=== PATIENT | female | born 1950 | race Two or more races ===

== ENCOUNTER 2024-11-04 11:12 | Inpatient (IN) | payer OTHER ==
[~2024-11-04] VITALS: Ht 162.6 cm; Wt 99.8 kg
--- NOTE | 2024-11-04 11:21 | ED.PDOC ---
History of Present Illness HPI Comments 74 year old female presents to the ED via EMS with a chief complaint of dizziness onset yesterday. Per EMS, patient checked BP at home, was low, went to [place] this morning due to dizziness, generalized weakness, fatigue, nausea, chills, headache since yesterday. Patient had abnormal EKG, was sent to ED. Upon EMS arrival, BP was 113/68, HR was 130s-180s, A-fib, RVR. PMHx HTN, bipolar disorder. Denies vomiting, diarrhea, chest pain, shortness of breath. No other symptoms or modifying factors present at this time. Time Seen by MD: 11:14 Reviewed Notes: Medications, Allergies Allergies: Coded Allergies: Lovastatin (Verified Allergy, Unknown, 11/04/24) Information Source: Patient, Emergency Med Personnel Mode of Arrival: EMS Severity: Moderate Timing: Days Duration: Since onset Prehospital treatment: 12 Lead EKG Past Medical History PAST MEDICAL HISTORY: HTN Surgical History: Denies all surgeries ROLLER MAN History: No Pertinent ROLLER MAN History Family History Family History: Reviewed,noncontributory to illness, No family hx of Cancer, No family hx of DM, No family hx of Heart terese, No family hx of HTN, No family hx ofKidney terese, No family hx of Liver terese, No family hx of Lung terese, No family hx of Stroke Social History Smoker: Non-Smoker Alcohol: Denies ETOH Use Drugs: Denies Drug Use Lives In: Home Constitutional: reports: chills, fatigue, weakness; denies: diaphoresis, fever, malaise, sweats, others EENTM: reports: blurred vision; denies: double vision, ear bleeding, ear discharge, ear drainage, ear pain, ear ringing, eye pain, eye redness, hearing loss, mouth pain, mouth swelling, nasal discharge, nose bleeding, nose congestion, nose pain, photophobia, tearing, throat pain, throat swelling, voice changes, others Respiratory: denies: cough, hemoptysis, orthopnea, SOB at rest, shortness of breath, SOB with excertion, stridor, wheezing, others Cardiovascular: denies: chest pain, dizzy spells, diaphoresis, Dyspnea on exertion, edema, irregular heart beat, left arm pain, lightheadedness, palpitations, PND, syncope, others Gastrointestinal: reports: nausea; denies: abdomen distended, abdominal pain, blood streaked bowels, constipated, diarrhea, dysphagia, difficulty swallowing, hematemesis, melena, poor appetite, poor fluid intake, rectal bleeding, rectal pain, vomiting, others Genitourinary: denies: abnormal vagina bleeding, burning, dyspareunia, dysuria, flank pain, frequency, hematuria, incontinence, pain, , vagina discharge, urgency, others Neurological: reports: dizziness, headache, weakness; denies: fainting, left sided numbness, left sided weakness, numbness, paresthesia, pre-existing deficit, right sided numbness, right sided weakness, seizure, speech problems, tingling, tremors, others Musculoskeletal: denies: back pain, gout, joint pain, joint swelling, muscle pain, muscle stiffness, neck pain, others Integumetry: denies: bruises, change in color, change in hair/nails, dryness, laceration, lesions, lumps, rash, wounds, others Allergic/Immunocompromised: denies: Difficulty Healing, Frequent Infections, Hives, Itching, others Hematologic/Lymphatic: denies: anemia, blood clots, easy bleeding, easy bruising, swollen glands, others Endocrine: denies: excessive hunger, excessive sweating, excessive thirst, excessive urination, flushing, intolerance to cold, intolerance to heat, unexplained weight gain, unexplained weight loss, others Psychiatric: denies: anxiety, bipolar disorder, depression, hopeless, panic disorder, schizophrenia, sleepless, suicidal, others All Other Systems: Reviewed and Negative Physical Exam General Appearance: No Apparent Distress, Normal HEENT: Normal ENT Inspection, Pharynx Normal, TMs Normal Neck: Full Range of Motion, Non-Tender, Normal, Normal Inspection Respiratory: Chest Non-Tender, Lungs Clear, No Accessory Muscle Use, No Respiratory Distress, Normal Breath Sounds Cardiovascular: No Edema, No JVD, No Murmur, No Gallop, Normal Peripheral Pulses, Regular Rate/Rhythm Breast Exam: Deferred Gastrointestinal: No Organomegaly, Non Tender, No Pulsatile Mass, Normal Bowel Sounds, Soft Genitalia: Deferred Pelvic: Deferred Rectal: Deferred Extremities: No calf tenderness, Normal capillary refill, Normal inspection, Normal range of motion, Non-tender, No pedal edema Musculoskeletal : Apperance: Normal Neurologic: Alert, flotation tender II-XII nml as Tested, No Motor Deficits, Normal Affect, Normal Mood, No Sensory Deficits Cerebellar Function: Normal Reflexes: Normal Skin: Dry, Normal Color, Warm Lymphatic: No Adenopathy Was a procedure done? Was a procedure done?: No Differential Dx Considerations may include: ACS, CVA, electrolyte abnormalities, infectious etiology, pneumonia X-Ray, Labs, Meds, VS Vital Signs Date Time Temp Pulse Resp B/P (MAP) Pulse Ox O2 Delivery O2 Flow Rate FiO2 11/04/24 14:12 154 11/04/24 13:46 130 94/63 11/04/24 12:23 146 111/61 11/04/24 12:13 174 11/04/24 12:00 125 16 94/51 (65) 95 11/04/24 12:00 154 11/04/24 11:41 98.8 20 119/71 (87) 97 98.8 11/04/24 11:25 97.6 176 18 113/68 (83) 95 97.6 11/04/24 11:25 176 18 95 Room Air* 0 21 11/04/24 11:13 166 Lab Test 11/04/24 12:43 11/04/24 11:33 Range/Units Troponin I High Sensitivity 213 *H 84 *H </=34 ng/L White Blood Count 6.0 4.4-10.8 10^3/uL Red Blood Count 5.30 H 4.0-5.20 10^6/uL Hemoglobin 14.6 12.2-16.2 g/dL Hematocrit 43.8 36.0-46.0 % Mean Corpuscular Volume 82.6 80.0-100.0 fL Mean Corpuscular Hemoglobin 27.5 L 28.0-32.0 pg Mean Corpuscular Hemoglobin Concent 33.2 32.0-36.0 g/dL Red Cell Distribution Width 14.9 H 11.8-14.3 % Platelet Count 189 140-450 10^3/uL Mean Platelet Volume 8.5 6.9-10.8 fL Neutrophils (%) (Auto) 70.1 37.0-80.0 % Lymphocytes (%) (Auto) 19.1 10.0-50.0 % Monocytes (%) (Auto) 10.2 0.0-12.0 % Eosinophils (%) (Auto) 0.1 0.0-7.0 % Basophils (%) (Auto) 0.5 0.0-2.0 % Neutrophils # (Auto) 4.2 1.6-8.6 10 ^3/uL Lymphocytes # (Auto) 1.1 0.4-5.4 10 ^3/uL Monocytes # (Auto) 0.6 0-1.3 10 ^3/uL Eosinophils # (Auto) 0 0-0.8 10 ^3/uL Basophils # (Auto) 0 0-0.2 10 ^3/uL Nucleated Red Blood Cells 0.1 % Sodium Level 141 136-145 mmol/L Potassium Level 3.2 L 3.5-5.1 mmol/L Chloride Level 109 H 98-107 mmol/L Carbon Dioxide Level 24 20-31 mmol/L Anion Gap 8 5-15 Blood Urea Nitrogen 14 9-23 mg/dL Creatinine 1.01 0.550-1.02 mg/dL Glomerular Filtration Rate Calc 59 >90 mL/min BUN/Creatinine Ratio 13.9 10.0-20.0 Serum Glucose 119 H 74-106 mg/dL Lactic Acid Level 1.6 0.4-2.0 mmol/L Calcium Level 9.2 8.7-10.4 mg/dL B-Type Natriuretic Peptide 111.91 0-100 pg/mL Current Medications Medications (Trade) Dose Ordered Sig/Jeremy Route Start Time Stop Time Status Last Admin Metoprolol Tartrate (Lopressor) 5 mg ONCE ONCE IV 11/04/24 12:15 11/04/24 12:16 DC 11/04/24 12:23 Amiodarone HCl 100 ml @ 600 mls/hr ONCE ONCE IV 11/04/24 14:15 11/04/24 14:30 DC 11/04/24 14:[address] [address] Ph: [phone] DIAGNOSTIC IMAGING Diagnostic Imaging Report : [id number] Signed PATIENT: BRENNA ARMANDO ACCT: [id number] UNIT: [id number] : 1950 LOC: ER ROOM / BED: / AGE / SEX: 74 / F ADM STATUS: REG ER SERVICE 1122 ORDERING PHYSICIAN: SHERON NICHOLS MD PROCEDURE(s): CXRP - CHEST PORTABLE REASON: palpitations ORDER NUMBER(s): [id number], ACCESSION NUMBER(s): [id number] CHEST RADIOGRAPH Indication: palpitations Technique: Single frontal view of the chest was obtained COMPARISON: None FINDINGS: Lines and Tubes: None Lungs: Clear Pleura: No effusion. No pneumothorax. Cardiomediastinal contours: Unremarkable Bones: Unremarkable IMPRESSION: No acute disease. ATED BY: SHAI BHAKTA MD DICTATED DATE/TIME: 11/04/24 114 SIGNED BY: SHAI BHAKTA MD SIGNED DATE/TIME: 11/04/24 114 CC: Time of 1ST Reevaluation: 11:44 Reevaluation 1ST: Unchanged Patient Education/Counseling: Diagnosis, Treatment, Prognosis Family Education/Counseling: No Family Present Additional Information The following tests were ordered, and results were reviewed by me: BMP, CBC, TROP -x3, BNP, XY CHEST, LA W/ REFLEX, EKG -x3 Additional Information was gathered from interviewing the following independent historians: EMS I reviewed and agreed with the following test results read by other providers: XY CHEST I discussed treatment and results with medical personnel and: Patient Comprehensive systems review obtained and negative except for what is stated in the HPI. Departure 1 Departure Time of Disposition: 14:56 ([place] Authorization [id number] for admission to [facility].Patient is afib with rvr. Tried metoprololl without much affect. Started patient on amio. We will admit patient for further workup and expert consultation) Impression: Primary Impression: Atrial fibrillation with RVR Additional Impressions: Dizziness Weakness Elevated troponin Disposition: ADMITTED INPATIENT Admit to: [facility] Condition: Guarded Critical Care Note Critical Care Time?: Yes Critical care comment: AFib with RVR Authorized and Performed by: Sheron Nichols MD Total critical care time: Approximately 39 minutes Due to a high probability of clinically significant, life threatening deterioration, the patient required my highest level of preparedness to intervene emergently and I personally spent this critical care time directly and personally managing the patient. This critical care time included obtaining a history; examining the patient; pulse oximetry; ordering and review of studies; arranging urgent treatment with development of a management plan; evaluation of patient's response to treatment; frequent reassessment; and, discussions with other providers. This critical care time was performed to assess and manage the high probability of imminent, life-threatening deterioration that could result in multi-organ failure. It was exclusive of separately billable procedures and treating other patients and teaching time. Please see my other sections and the rest of the note for further information on patient assessment and treatment. Stability Stability form required: No Heart Score Heart Score: Heart Score Response (Comments) Value History Moderate Suspicious 1 EKG Repolarization Disturb 1 Age >65 2 Risk Factors >3 or Hx ASHD 2 Troponin >3 x's Normal limit 2 Total 8 I personally scribed for SHERON NICHOLS MD ([email or web address]) on 11/04/24 at 11:21. Electronically submitted by Stephanie Sebastian ([email or web address]). I personally scribed for SHERON NICHOLS MD ([email or web address]) on 11/04/24 at 11:57. Electronically submitted by Stephanie Sebastian ([email or web address]). I personally scribed for SHERON NICHOLS MD ([email or web address]) on 11/04/24 at 12:07. Electronically submitted by Stephanie Sebastian ([email or web address]). SHERON NICHOLS MD Nov 04, 2024 11:21
[2024-11-04 11:25] VITALS: PULSE 176; RESP 18; O2SAT 95
--- NOTE | 2024-11-04 11:44 | DVH ---
CHEST RADIOGRAPH Indication: palpitations Technique: Single frontal view of the chest was obtained COMPARISON: None FINDINGS: Lines and Tubes: None Lungs: Clear Pleura: No effusion. No pneumothorax. Cardiomediastinal contours: Unremarkable Bones: Unremarkable IMPRESSION: No acute disease.
[2024-11-04 11:48] LABS: Basophils # (auto) 0 10 ^3/uL (0-0.2); Basophils % (auto) 0.5 % (0.0-2.0); Eosinophils # (auto) 0 10 ^3/uL (0-0.8); Eosinophils % (auto) 0.1 % (0.0-7.0); Hematocrit 43.8 % (36.0-46.0); Hemoglobin 14.6 g/dL (12.2-16.2); Lymphocytes # (auto) 1.1 10 ^3/uL (0.4-5.4); Lymphocytes % (auto) 19.1 % (10.0-50.0); Mean Corpuscular Hemoglobin 27.5 pg (28.0-32.0); Mean Corpuscular Hgb Conc. 33.2 g/dL (32.0-36.0); Mean Corpuscular Volume 82.6 fL (80.0-100.0); Monocytes # (auto) 0.6 10 ^3/uL (0-1.3); Monocytes % (auto) 10.2 % (0.0-12.0); Neutrophils # (auto) 4.2 10 ^3/uL (1.6-8.6); Neutrophils % (auto) 70.1 % (37.0-80.0); Nucleated Red Blood Cells % 0.1 %; Platelet Count (auto) 189 10^3/uL (140-450); Red Cell Distribution Width 14.9 % (11.8-14.3)
[2024-11-04 11:57] LABS: Sodium 141 mmol/L (136-145)
[2024-11-04 11:58] LABS: Anion Gap 8 (5-15); Carbon Dioxide 24 mmol/L (20-31)
[2024-11-04 11:59] LABS: Calcium 9.2 mg/dL (8.7-10.4)
[2024-11-04 12:04] LABS: BUN/Creatinine Ratio 13.9 (10.0-20.0); Blood Urea Nitrogen 14 mg/dL (9-23); Chloride 109 mmol/L (98-107); Glucose 119 mg/dL (74-106); Potassium 3.2 mmol/L (3.5-5.1)
[2024-11-04] MEDS: METOPROLOL TARTRATE 1MG/1ML-5ML VIAL IV ONE (12:23)
[2024-11-04] MEDS: AMIODARONE BOLUS KIT 100 ML IV ONE (14:36)
[2024-11-04] MEDS: AMIODARONE 360mg/200mL PREMIX 200 ML IV ONE (14:43)
--- NOTE | 2024-11-04 18:56 | ECG ---
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
--- NOTE | 2024-11-04 18:57 | ECG ---
[facility] Test Date: 2024-11-04 Test Time: 14:12:37 Pat Name: BRENNA ARMANDO Department: ED Room: 0221T Gender: F Application Development Team Lead: sole : 1950 Requested By: SHERON DE LOS SANTOS Order Number: [id number] Reading MD: Michael Carmona Measurements Intervals [place] Rate: 154 P: 0 VA: 0 QRS: 9 QRSD: 78 T: 109 QT: 316 QTc: 506 Interpretive Statements Atrial fibrillation with rapid V-rate LVH with secondary repolarization abnormality Electronically Signed On 11-05-2024 18:48:32 PDT by Michael Carmona Please click the below link to view image of tracing.
[2024-11-04] MEDS ORDERED: ONDANSETRON HCL 4 MG/2 ML VIAL IV PRN (19:30)
[2024-11-04] MEDS ORDERED: DEXTROSE (50%) 50ML SYRG IV PRN (19:30)
[2024-11-04] MEDS ORDERED: ACETAMINOPHEN 325 MG TAB PO PRN (19:30)
[2024-11-04] MEDS ORDERED: NITROGLYCERIN 0.4 MG SL TAB SL PRN (19:30)
[2024-11-04] MEDS ORDERED: MORPHINE SULFATE INJ 2 MG/ml SYRG IV PRN (19:30)
[2024-11-04 20:00] VITALS: PULSE 118; RESP 16; O2SAT 98
[2024-11-04] MEDS: AMIODARONE 360mg/200mL PREMIX 200 ML IV SCH (20:17)
[2024-11-04] MEDS: POTASSIUM CHL 20 Meq TABLET PO ONE (20:23)
[2024-11-04] MEDS: DABIGATRAN 75 MG CAP PO SCH (22:00)
[2024-11-04] MEDS: InsuLIN REG 1unit/0.01ml Soln (100units/ml) SC SCH (22:00)
[2024-11-04] MEDS: ACCU-CHEK COMFORT CURVE STRIP VI SCH (22:25)
[2024-11-04 22:30] VITALS: BP 143/71; PULSE 79; RESP 18; TEMP 98.7; O2SAT 97
[2024-11-04 22:32] VITALS: BP 121/69; PULSE 76; RESP 16; TEMP 98.3; O2SAT 96
--- NOTE | 2024-11-04 22:51 | DVHHP2 ---
History of Present Illness Reason for Visit: Generalized weakness History of Present Illness 74-year-old female presents for evaluation of generalized weakness. Patient endorses a two day history of generalized weakness with associated dizziness. Today the patient developed substernal chest pressure and left arm pain so she p resented for further evaluation. On arrival to the emergency department patient was noted to be in atrial fibrillation with rapid ventricular response with a heart rate in the 150s. Past Medical History Diabetes mellitus, hypertension Past Surgical History Denies Family History Noncontributory Smoke: No ALCOHOL: none Drugs: None Lives: with Family Review of Systems Review of Systems Review of systems are currently negative otherwise addressed in HPI. Allergies: Coded Allergies: Lovastatin (Verified Allergy, Unknown, 11/04/24) Medications Current Medications Medications Dose Ordered Sig/Jeremy Route Start Time Stop Time Status Last Admin Dose Admin Dabigatran 150 mg BID PO 11/04/24 22:00 Metoprolol Succinate 25 mg DAILY PO 11/05/24 10:00 Losartan Potassium 25 mg DAILY PO 11/05/24 10:00 Diagnostic Test (Pha) 1 strip ACHS 11/04/24 22:00 11/04/24 22:25 1 STRIP Insulin Human Regular ACHS SC 11/04/24 22:00 Dextrose 50 ml UD PRN IV 11/04/24 19:30 Ondansetron HCl 4 mg Q4HP PRN IV 11/04/24 19:30 Acetaminophen 650 mg Q6HP PRN PO 11/04/24 19:30 Nitroglycerin 0.4 mg Q5MINP PRN SL 11/04/24 19:30 Morphine Sulfate 2 mg Q30M PRN IV 11/04/24 19:30 Exam Vital Signs Vital Signs Date Time Temp Pulse Resp B/P (MAP) Pulse Ox O2 Delivery O2 Flow Rate FiO2 11/04/24 21:30 81 13 147/83 (104) 93 11/04/24 20:00 Room Air* 0 21 11/04/24 20:00 99.1 99.1 Exam Gen: 74-year-old female in mild distress Skin: Warm, dry, normal color and texture, no rash. HEENT: Normocephalic atraumatic, mucous membranes moist and pink. Neck: Cervical and supraclavicular nodes normal without enlargement, trachea is midline, thyroid gland is normal without masses. Pulmonary: Clear to auscultation and percussion bilaterally. Cardiac: Regular rate and rhythm. No murmur Abdomen: Soft, nontender, nondistended, bowel sounds present all 4 quadrants, no guarding, no rigidity, no organomegaly. Extremities: No cyanosis, clubbing, no edema Neuro: Cranial nerves II through XII grossly intact, normal affect and speech, no focal motor deficits. Labs/Xrays ORDERING PHYSICIAN: SHERON DE LOS SANTOS MD PROCEDURE(s): CXRP - CHEST PORTABLE REASON: palpitations ORDER NUMBER(s): [id number], ACCESSION NUMBER(s): [id number] CHEST RADIOGRAPH Indication: palpitations Technique: Single frontal view of the chest was obtained COMPARISON: None FINDINGS: Lines and Tubes: None Lungs: Clear Pleura: No effusion. No pneumothorax. Cardiomediastinal contours: Unremarkable Bones: Unremarkable IMPRESSION: No acute disease. Labs Test 11/04/24 15:02 11/04/24 11:33 Range/Units Troponin I High Sensitivity 423 *H </=34 ng/L White Blood Count 6.0 4.4-10.8 10^3/uL Red Blood Count 5.30 H 4.0-5.20 10^6/uL Hemoglobin 14.6 12.2-16.2 g/dL Hematocrit 43.8 36.0-46.0 % Mean Corpuscular Volume 82.6 80.0-100.0 fL Mean Corpuscular Hemoglobin 27.5 L 28.0-32.0 pg Mean Corpuscular Hemoglobin Concent 33.2 32.0-36.0 g/dL Red Cell Distribution Width 14.9 H 11.8-14.3 % Platelet Count 189 140-450 10^3/uL Mean Platelet Volume 8.5 6.9-10.8 fL Neutrophils (%) (Auto) 70.1 37.0-80.0 % Lymphocytes (%) (Auto) 19.1 10.0-50.0 % Monocytes (%) (Auto) 10.2 0.0-12.0 % Eosinophils (%) (Auto) 0.1 0.0-7.0 % Basophils (%) (Auto) 0.5 0.0-2.0 % Neutrophils # (Auto) 4.2 1.6-8.6 10 ^3/uL Lymphocytes # (Auto) 1.1 0.4-5.4 10 ^3/uL Monocytes # (Auto) 0.6 0-1.3 10 ^3/uL Eosinophils # (Auto) 0 0-0.8 10 ^3/uL Basophils # (Auto) 0 0-0.2 10 ^3/uL Nucleated Red Blood Cells 0.1 % Sodium Level 141 136-145 mmol/L Potassium Level 3.2 L 3.5-5.1 mmol/L Chloride Level 109 H 98-107 mmol/L Carbon Dioxide Level 24 20-31 mmol/L Anion Gap 8 5-15 Blood Urea Nitrogen 14 9-23 mg/dL Creatinine 1.01 0.550-1.02 mg/dL Glomerular Filtration Rate Calc 59 >90 mL/min BUN/Creatinine Ratio 13.9 10.0-20.0 Serum Glucose 119 H 74-106 mg/dL Lactic Acid Level 1.6 0.4-2.0 mmol/L Calcium Level 9.2 8.7-10.4 mg/dL B-Type Natriuretic Peptide 111.91 0-100 pg/mL Thyroid Stimulating Hormone (TSH) 1.59 0.55-4.78 uIU/mL Assessment/Plan Assessment/Plan Assessment AFib with RVR Hypertension Electrolyte imbalance Diabetes mellitus Secondary coagulopathy Plan Admit the patient to [facility] to the hospitalist Continue amiodarone drip Echocardiogram pending Cardiology consultation Resume home medications Continue treatment per orders. Plan discussed with: Patient [facility] Procedure Category Date Status Time Dabigatran Capsule PHA 11/04/24 In Process (Pradaxa Capsule) 22:00 Metoprolol Xl PHA 11/05/24 In Process Succinate (Toprol Xl) 10:00 Losartan Tablet PHA 11/05/24 In Process (Cozaar Tablet) 10:00 * Cardiology Consult CONS 11/04/24 Transmitted 19:17 Consistent DIET 11/05/24 Transmitted Carb(Ccho)Diabetes Breakfast Glucose Blood PHA 11/04/24 In Process (Accu-Chek Comfort 22:00 Insulin R (Human) PHA 11/04/24 In Process (Insulin R) 22:00 Dextrose 50% Syringe PHA 11/04/24 In Process 19:30 Admit ADMIT 11/04/24 Transmitted 19:17 Ondansetron Hcl PHA 11/04/24 In Process (Zofran) 19:30 Complete Blood Count LAB 11/05/24 Verified 04:00 Echo 2d Mode Cardiac US 11/04/24 Logged DOP 19:17 Condition: Fair [place] 11/04/24 In Process 19:17 Acetaminophen Tablet PHA 11/04/24 In Process (Tylenol Tablet) 19:30 Bedrest With Bathroom [place] 11/04/24 In Process Privileg 19:17 Nitroglycerin PHA 11/04/24 In Process Sublingual (Ntrostat 19:30 Morphine Sulfate PHA 11/04/24 In Process Injection 19:30 Stat Ekg For Chest [place] 11/04/24 In Process Pain 19:17 Notify Md Of Changes [place] 11/04/24 In Process From Base 19:17 Ironworker Apprentice For [facility] 11/04/24 In Process 24 Hours 19:17 Emergency Dysrhythmia [place] 11/04/24 In Process Protocol 19:17 Rhythm Strips Once [place] 11/04/24 In Process Every Shift 19:17 Oxygen By Nasal RT 11/04/24 Transmitted Cannula 19:17 Basic Metabolic Panel LAB 11/05/24 Verified 04:00 Date of Service: Nov 04, 2024 Billing Provider: KIKE MCGREGOR Common Visit Codes: [id number] INP/OBS CARE (HIGH) KIKE MCGREGOR Nov 04, 2024 22:51
[2024-11-05] VITALS (9 sets, daily range): BP systolic 120–149; BP diastolic 67–85; PULSE 68–111; RESP 16–20; TEMP 98.1–98.6; O2SAT 96–98
[2024-11-05 01:54] LABS: LDL Cholesterol 72 mg/dL (< 100); Triglycerides 95 mg/dL (< 150)
[2024-11-05 01:56] LABS: Cholesterol 162 mg/dL (< 200); HDL Cholesterol 69 mg/dL (40-59)
[2024-11-05] MEDS ORDERED: ROSU5TAB24 PO (05:05)
[2024-11-05] MEDS ORDERED: METO25TA93 PO (05:05)
[2024-11-05] MEDS ORDERED: DABI150C5 PO (05:05)
[2024-11-05] MEDS ORDERED: VENL1TAB97 PO (05:05)
[2024-11-05 06:41] LABS: Potassium 3.9 mmol/L (3.5-5.1); Sodium 141 mmol/L (136-145)
[2024-11-05 06:42] LABS: Anion Gap 7 (5-15); Basophils # (auto) 0 10 ^3/uL (0-0.2); Basophils % (auto) 0.6 % (0.0-2.0); Calcium 9.2 mg/dL (8.7-10.4); Carbon Dioxide 26 mmol/L (20-31); Chloride 108 mmol/L (98-107); Eosinophils # (auto) 0.1 10 ^3/uL (0-0.8); Eosinophils % (auto) 1.1 % (0.0-7.0); Hematocrit 39.8 % (36.0-46.0); Hemoglobin 13.2 g/dL (12.2-16.2); Lymphocytes # (auto) 1.3 10 ^3/uL (0.4-5.4); Mean Corpuscular Hemoglobin 27.5 pg (28.0-32.0); Mean Corpuscular Hgb Conc. 33.1 g/dL (32.0-36.0); Mean Corpuscular Volume 83.1 fL (80.0-100.0); Monocytes # (auto) 0.6 10 ^3/uL (0-1.3); Monocytes % (auto) 12.5 % (0.0-12.0); Neutrophils % (auto) 59.8 % (37.0-80.0); Platelet Count (auto) 174 10^3/uL (140-450); Red Cell Distribution Width 15.2 % (11.8-14.3)
[2024-11-05 06:47] LABS: BUN/Creatinine Ratio 21.3 (10.0-20.0); Blood Urea Nitrogen 16 mg/dL (9-23)
[2024-11-05 06:48] LABS: Glucose 123 mg/dL (74-106)
[2024-11-05] MEDS: METOPROLOL SUCCINATE XL 50 MG TAB PO SCH (09:30)
[2024-11-05] MEDS: LOSARTAN POTASSIUM 25 MG TAB PO SCH (09:30)
--- NOTE | 2024-11-05 10:01 | ECG ---
[facility] Test Date: 2024-11-04 Test Time: 12:13:58 Pat Name: BRENNA ARMANDO Department: ER Room: 0221T B Gender: F Diver Tender: PAVITHRA : 1950 Requested By: SHERON DE LOS SANTOS Order Number: [id number] Reading MD: Michael Carmona Measurements Intervals [place] Rate: 174 P: 0 [place]: 0 QRS: 1 QRSD: 83 T: 241 QT: 267 QTc: 455 Interpretive Statements Atrial fibrillation with rapid V-rate LVH with secondary repolarization abnormality Electronically Signed On 11-05-2024 18:47:14 PDT by Michael Carmona Please click the below link to view image of tracing.
--- NOTE | 2024-11-05 11:47 | DVHINCON2 ---
Date Seen: Nov 05, 2024 Referring Physician RAFAEL Lujan Reason for Consultation Afib RVR History of Present Illness This is a 74-year-old female patient who presents to the emergency room with chief complaint of shortness of breath and dizziness one day prior to emergency room arrival. On the day of emergency room arrival, the patient states that she was at home and began experiencing severe shortness of breath. She states that she checked her blood pressure and noticed that her systolic was in the 80s. She decided to go to urgent care. While at urgent Care, it was noted that her heart rate was reaching the 160s. EMS was called and the patient was brought to the emergency room for further evaluation. Upon emergency room arrival, a twelve lead electrocardiogram revealed atrial fibrillation with rapid ventricular response. The patient was given an amiodarone bolus and subsequently started on an amiodarone drip by ER staff. Initial troponin level of 84ng/L with peak level at 423ng/L. Significant past medical history includes paroxysmal atrial fibrillation (on Pradaxa), hypertension, dyslipidemia, bipolar disorder, and morbid obesity. At the time of assessment, the patient is now in normal sinus rhythm, confirmed with twelve lead electrocardiogram. Past Medical History Past medical history reviewed. No other significant than mentioned above. Past Surgical History Denies all previous surgeries Family History: Patient reports no known family medical history. Family History Family history reviewed. Social History Denies the use of tobacco, alcohol or illicit drugs. Allergies: Coded Allergies: Lovastatin (Verified Allergy, Unknown, 11/04/24) Home Meds Reported Medications Venlafaxine Hydrochloride (Venlafaxine Hcl) 37.5 Mg Tab, 37.5 MG PO DAILY, TAB 11/05/24 Rosuvastatin Calcium (Rosuvastatin Calcium) 5 Mg Tab, 5 MG PO DAILY, TAB 11/05/24 Metoprolol Succinate (Metoprolol Succinate Er) 25 Mg Tab, 25 MG PO DAILY, TAB 11/05/24 Dabigatran Etexilate Mesylate (Pradaxa) 150 Mg Cap, 150 MG PO BID, CAP 11/05/24 Home Meds Home medications reviewed. Current Medications Current Medications Medications (Trade) Dose Ordered Sig/Jeremy Route PRN Reason Start Time Stop Time Status Last Admin Dabigatran (Pradaxa Capsule) 150 mg BID PO 11/04/24 22:00 11/05/24 11:24 Metoprolol Succinate (Toprol Xl) 25 mg DAILY PO 11/05/24 10:00 11/05/24 09:30 Losartan Potassium (Cozaar Tablet) 25 mg DAILY PO 11/05/24 10:00 11/05/24 09:30 Diagnostic Test (Pha) (Accu-Chek Comfort Curve T) 1 strip ACHS 11/04/24 22:00 11/05/24 06:12 Insulin Human Regular (InsuLIN R) ACHS SC 11/04/24 22:00 Dextrose 50 ml UD PRN IV Blood Sugar LESS THAN 60 11/04/24 19:30 Ondansetron HCl (Zofran) 4 mg Q4HP PRN IV NAUSEA / VOMITING 11/04/24 19:30 Acetaminophen (Tylenol Tablet) 650 mg Q6HP PRN PO PAIN SCALE 1-3 OR TEMP>100.4 11/04/24 19:30 Nitroglycerin (Ntrostat Sublingual) 0.4 mg Q5MINP PRN SL FOR CHEST PAIN 11/04/24 19:30 Morphine Sulfate 2 mg Q30M PRN IV FOR CHEST PAIN 11/04/24 19:30 Review of Systems Constitutional: No symptom reported Ears, Nose, & Throat: No symptom reported Eyes: No symptom reported Neurological: Dizziness Pulmonary/Respiratory: Shortness of breath Cardiovascular: No symptom reported Gastrointestinal: No symptom reported Genitourinary: No symptom reported Musculoskeletal: No symptom reported Skin: No symptom reported Psychiatric: No symptom reported Endocrine: No symptom reported Hematologic/Lymphatic: No symptom reported Vital Signs Vital Signs Date Time Temp Pulse Resp B/P (MAP) Pulse Ox O2 Delivery O2 Flow Rate FiO2 11/05/24 09:30 147/85 11/05/24 09:30 72 11/05/24 08:30 20 97 Room Air* 0 21 11/05/24 07:26 98.3 98.3 Physical Exam General Appearance: Cooperative. Morbidly obese Pulmonary/Respiratory: Clear, bilateral breaths sounds. Cardiovascular/Chest: Regular rate and rhythm. Peripheral Pulses: 2+ Radial (R). 2+ Radial (L). 2+ Pedal (R). 2+ Pedal (L) Abdominal Exam: Normal bowel sounds. Ankle Exam: Negative ankle edema Lower extremities: Negative lower extremity edema Neuro/Mental Status: A/OX4, coherent. Thoughts/Psych: Normal thought pattern. Appropriate mood and affect. Good judgment and insight. Appearance: No acute distress. Skin Exam: Normal inspection. Normal color. Warm and dry. Labs/Diagnostic Data Labs Test 11/05/24 05:52 11/05/24 05:32 11/04/24 15:02 11/04/24 11:33 Range/Units POC Glucose 135 H 70-106 mg/dl White Blood Count 5.0 4.4-10.8 10^3/uL Red Blood Count 4.80 4.0-5.20 10^6/uL Hemoglobin 13.2 12.2-16.2 g/dL Hematocrit 39.8 36.0-46.0 % Mean Corpuscular Volume 83.1 80.0-100.0 fL Mean Corpuscular Hemoglobin 27.5 L 28.0-32.0 pg Mean Corpuscular Hemoglobin Concent 33.1 32.0-36.0 g/dL Red Cell Distribution Width 15.2 H 11.8-14.3 % Platelet Count 174 140-450 10^3/uL Mean Platelet Volume 8.8 6.9-10.8 fL Neutrophils (%) (Auto) 59.8 37.0-80.0 % Lymphocytes (%) (Auto) 26.0 10.0-50.0 % Monocytes (%) (Auto) 12.5 H 0.0-12.0 % Eosinophils (%) (Auto) 1.1 0.0-7.0 % Basophils (%) (Auto) 0.6 0.0-2.0 % Neutrophils # (Auto) 3.0 1.6-8.6 10 ^3/uL Lymphocytes # (Auto) 1.3 0.4-5.4 10 ^3/uL Monocytes # (Auto) 0.6 0-1.3 10 ^3/uL Eosinophils # (Auto) 0.1 0-0.8 10 ^3/uL Basophils # (Auto) 0 0-0.2 10 ^3/uL Nucleated Red Blood Cells 0.0 % Sodium Level 141 136-145 mmol/L Potassium Level 3.9 3.5-5.1 mmol/L Chloride Level 108 H 98-107 mmol/L Carbon Dioxide Level 26 20-31 mmol/L Anion Gap 7 5-15 Blood Urea Nitrogen 16 9-23 mg/dL Creatinine 0.75 0.550-1.02 mg/dL Glomerular Filtration Rate Calc 85 >90 mL/min BUN/Creatinine Ratio 21.3 H 10.0-20.0 Serum Glucose 123 H 74-106 mg/dL Hemoglobin A1c 6.1 H <5.7 % A1C Calcium Level 9.2 8.7-10.4 mg/dL Magnesium Level 2.2 1.6-2.6 mg/dL Troponin I High Sensitivity 423 *H </=34 ng/L Lactic Acid Level 1.6 0.4-2.0 mmol/L B-Type Natriuretic Peptide 111.91 0-100 pg/mL Triglycerides Level 95 < 150 mg/dL Cholesterol Level 162 < 200 mg/dL LDL Cholesterol 72 < 100 mg/dL HDL Cholesterol 69 H 40-59 mg/dL Thyroid Stimulating Hormone (TSH) 1.59 0.55-4.78 uIU/mL Assessment Atrial fibrillation with a rapid ventricular response, now normal sinus rhythm NSTEMI type II secondary to above History of paroxysmal atrial fibrillation (on Pradaxa) Hypertension Dyslipidemia Hypokalemia, resolved Bipolar disorder Morbid obesity Plan/Recommendation We will continue with the following plan/recommendations (Dr. Carmona): * Transthoracic echocardiogram reveals EF 60% * PPR1NU0 VASc score: 3 points * Continue NOAC therapy with Pradaxa * Continue with beta-anayeli for rate control * Transition to oral amiodarone * Monitor and replete electrolytes as needed, keep potassium greater than four and magnesium greater than two * Close Cardiac surveillance The patient who initially presented in atrial fibrillation with rapid ventricular response has now converted into a normal sinus rhythm. We will recommend to continue with NOAC therapy, beta-anayeli for rate control as well as antiarrhythmic agent. There is no further inpatient cardiac workup indicated at this time. We will recommend for the patient to follow up with a commercial real estate paralegal in the outpatient setting within 1-2 weeks post discharge. Thank you for allowing us to care for this patient. Please call with any questions or concerns. Critical care time spent: 43 minutes This medical document was created using an electronic medical record system with voice recognition software and computerized dictation system. Although this document has been carefully reviewed, there might still be some phonetic and typographical errors. Occasional wrong-word or ``sound-alike substitutions may have occurred due to the inherent limitations of voice recognition software. These areas are purely typographical due to imperfections of the software programs and do not reflect any compromise in the patient's medical care. Please read the chart carefully and recognize, using context, where these substitutions have occurred. Plan discussed with: Patient NYHA Physical activity limitations: NA Date of Service: Nov 05, 2024 Billing Provider: GIRISH CHOUDHURY Cardiology Common Codes: 32261-RVYACEO INP/OBS CARE (High) Cardiology Consultation Codes: 04169-AMLLDGJSR CONSULT <45MIN GIRISH CHOUDHURY Nov 05, 2024 11:47
--- NOTE | 2024-11-05 12:00 | ECG ---
[facility] Test Date: 2024-11-05 Test Time: 11:57:26 Pat Name: BRENNA ARMANDO Department: Respiratoy Room: 0221T B Gender: F Tester Compressed Gases: RAJWINDER : 1950 Requested By: GIRISH CHOUDHURY Order Number: [id number] Reading MD: Michael Carmona Measurements Intervals [place] Rate: 71 P: 40 CA: 136 QRS: 4 QRSD: 91 T: -2 QT: 435 QTc: 473 Interpretive Statements Sinus rhythm Probable left atrial enlargement Left ventricular hypertrophy Borderline T abnormalities, inferior leads Electronically Signed On 11-05-2024 18:34:20 PDT by Michael Carmona Please click the below link to view image of tracing.
--- NOTE | 2024-11-05 12:21 | DVHSR ---
APPROVED REPORT EXAM: Two-dimensional and M-mode echocardiogram with Doppler and color Doppler. Blood Pressure: 147/85 mmHg INDICATION AFIB RISK FACTORS Height: 64, Weight: 216 DIMENSIONS LVDd4.0 (3.8-5.7cm)LA (2D)3.9 (1.9-4.0cm)Aortic Root3.8 (2.0-3.7cm) LVDs3.0 (2.5-4.0cm)LA (MM) (1.9-4.0cm)Aortic Cusp Exc1.5 (1.5-2.0cm) EF (%) 50.0 (55-70%)Rt. Atrium (1.9-4.0cm)Asc. Aorta cm Mitral Valve MitralMitral Stenosis E wave0.87m/sMV Mean GR.mmHg A wave0.84m/sMV Peak GR.35mmHg E/A ratio1.02D MVAcm2 DECEL [id number] 1/2 Utsq08mb IVRTmsDop MVA2.24cm2 Aortic Valve Aortic ValveAortic Stenosis V10.84m/Nilo Mean GR.4mmHg V21.41m/Nilo Peak GR.8mmHg LVOT Diameter2.4 (1.8-2.4cm)Doppler AVA2.69cm2 Pulmonic Valve V20.92m/s Tricuspid Valve TR Velocity2.45m/s [id number] Conclusion Sinus rhythm. Left atrial enlargement with aortic root enlargement. Valves are normal. Mild mitral annular calcification. Mild aortic sclerosis. Left ventricular function is preserved at 60% with normal RV function. Dopplers unremarkable. No pericardial effusion masses or vegetations.
--- NOTE | 2024-11-05 14:37 | DVHPN2 ---
Assessment/Plan Assessment/Plan Progress note 74 yo F with pafib on pradaxa, htn, hld, bipolar, obesity admitted for avib RVR on amio drip, however regular rate on exam physical exam aox3 clear breath sounds s1 s2 rrr abdomen soft nontender no LE edema ambulating to bathroom labs ekg imaging reviewed assessment and plan afib with RVR Type 2 WA pAfib on pradaxa HTN HLD bipolar obesity c/w amio drip switch to oral if able ekg to confirm NSR resume home meds diet cardiac dvt ppx on pradaxa unstable to dc Plan discussed with: Patient Date of Service: Nov 05, 2024 Billing Provider: MARK DURBIN MD Common Visit Codes: [id number] INP/OBS CARE(HIGH) MARK DURBIN MD Nov 05, 2024 14:37
[2024-11-05] MEDS: AMIODARONE HCL 200 MG TAB PO ONE (15:06)
[2024-11-05] MEDS: AMIODARONE HCL 200 MG TAB PO SCH (22:53)
[2024-11-06 01:00] VITALS: BP_SYST 139; BP_SYST 152; BP_DIAS 66; BP_DIAS 79; PULSE 113; PULSE 77; RESP 16; TEMP 98.2; TEMP 98.5; O2SAT 96; O2SAT 97
[2024-11-06 05:00] VITALS: BP 147/87; PULSE 72; RESP 14; TEMP 98.4; O2SAT 96
[2024-11-06 06:49] LABS: Basophils # (auto) 0 10 ^3/uL (0-0.2); Basophils % (auto) 0.2 % (0.0-2.0); Eosinophils # (auto) 0 10 ^3/uL (0-0.8); Eosinophils % (auto) 0.7 % (0.0-7.0); Hematocrit 39.5 % (36.0-46.0); Hemoglobin 13.1 g/dL (12.2-16.2); Lymphocytes # (auto) 1.3 10 ^3/uL (0.4-5.4); Lymphocytes % (auto) 25.8 % (10.0-50.0); Mean Corpuscular Hemoglobin 27.5 pg (28.0-32.0); Mean Corpuscular Hgb Conc. 33.3 g/dL (32.0-36.0); Mean Corpuscular Volume 82.6 fL (80.0-100.0); Monocytes # (auto) 0.7 10 ^3/uL (0-1.3); Monocytes % (auto) 13.1 % (0.0-12.0); Neutrophils % (auto) 60.2 % (37.0-80.0); Nucleated Red Blood Cells % 0.1 %; Platelet Count (auto) 174 10^3/uL (140-450); Red Blood Cells 4.78 10^6/uL (4.0-5.20); Red Cell Distribution Width 14.9 % (11.8-14.3)
[2024-11-06 06:57] LABS: Anion Gap 9 (5-15); Calcium 9.2 mg/dL (8.7-10.4); Carbon Dioxide 25 mmol/L (20-31); Sodium 141 mmol/L (136-145)
[2024-11-06 07:04] LABS: BUN/Creatinine Ratio 16.4 (10.0-20.0); Blood Urea Nitrogen 11 mg/dL (9-23)
[2024-11-06 07:07] LABS: Chloride 107 mmol/L (98-107); Glucose 118 mg/dL (74-106); Potassium 3.3 mmol/L (3.5-5.1)
[2024-11-06 08:00] VITALS: PULSE 67; PULSE 69; RESP 16; O2SAT 97
[2024-11-06 08:37] VITALS: BP 150/77; PULSE 67; RESP 16; TEMP 98.1; O2SAT 97
[2024-11-06 12:56] VITALS: BP 133/74; PULSE 67; RESP 16; TEMP 98.4; O2SAT 100
[2024-11-06] MEDS ORDERED: AMIO200T13 PO (13:50)
[2024-11-06] MEDS ORDERED: LOS25T PO (13:50)
--- NOTE | 2024-11-06 13:53 | DVHDS2 ---
Discharge Summary Date of Admission Nov 04, 2024 at 19:17 Date of Discharge: Nov 06, 2024 Labs/Diagnostic Data: Laboratory Results Test 11/06/24 11:02 11/06/24 05:50 11/05/24 05:32 11/04/24 15:02 POC Glucose 100 mg/dl (70-106) White Blood Count 5.0 10^3/uL (4.4-10.8) Red Blood Count 4.78 10^6/uL (4.0-5.20) Hemoglobin 13.1 g/dL (12.2-16.2) Hematocrit 39.5 % (36.0-46.0) Mean Corpuscular Volume 82.6 fL (80.0-100.0) Mean Corpuscular Hemoglobin 27.5 pg (28.0-32.0) Mean Corpuscular Hemoglobin Concent 33.3 g/dL (32.0-36.0) Red Cell Distribution Width 14.9 % (11.8-14.3) Platelet Count 174 10^3/uL (140-450) Mean Platelet Volume 9.0 fL (6.9-10.8) Neutrophils (%) (Auto) 60.2 % (37.0-80.0) Lymphocytes (%) (Auto) 25.8 % (10.0-50.0) Monocytes (%) (Auto) 13.1 % (0.0-12.0) Eosinophils (%) (Auto) 0.7 % (0.0-7.0) Basophils (%) (Auto) 0.2 % (0.0-2.0) Neutrophils # (Auto) 3.0 10 ^3/uL (1.6-8.6) Lymphocytes # (Auto) 1.3 10 ^3/uL (0.4-5.4) Monocytes # (Auto) 0.7 10 ^3/uL (0-1.3) Eosinophils # (Auto) 0 10 ^3/uL (0-0.8) Basophils # (Auto) 0 10 ^3/uL (0-0.2) Nucleated Red Blood Cells 0.1 % Sodium Level 141 mmol/L (136-145) Potassium Level 3.3 mmol/L (3.5-5.1) Chloride Level 107 mmol/L (98-107) Carbon Dioxide Level 25 mmol/L (20-31) Anion Gap 9 (5-15) Blood Urea Nitrogen 11 mg/dL (9-23) Creatinine 0.67 mg/dL (0.550-1.02) Glomerular Filtration Rate Calc 93 mL/min (>90) BUN/Creatinine Ratio 16.4 (10.0-20.0) Serum Glucose 118 mg/dL (74-106) Calcium Level 9.2 mg/dL (8.7-10.4) Hemoglobin A1c 6.1 % A1C (<5.7) Magnesium Level 2.2 mg/dL (1.6-2.6) Troponin I High Sensitivity 423 ng/L (</=34) Test 11/04/24 11:33 Lactic Acid Level 1.6 mmol/L (0.4-2.0) B-Type Natriuretic Peptide 111.91 pg/mL (0-100) Triglycerides Level 95 mg/dL (< 150) Cholesterol Level 162 mg/dL (< 200) LDL Cholesterol 72 mg/dL (< 100) HDL Cholesterol 69 mg/dL (40-59) Thyroid Stimulating Hormone (TSH) 1.59 uIU/mL (0.55-4.78) Other Laboratory Tests 11/06/24 05:50 Brief Hx & Hospital Course: 74 yo F with pafib on pradaxa, htn, hld, bipolar, obesity admitted for avib RVR, started on amio drip. seen by cardiology, afterwards converted back to NSR, switched to PO amio, stable to dc home to follow up with [place]. Condition at Discharge: Good Final Diagnosis/Problems List afib with RVR Type 2 NC pAfib on pradaxa HTN HLD bipolar obesity Discharge Disposition: Home Discharge Instruct/Medications Diet: Consistent carbohydrate, Cardiac 2g Na,low cholest Activity: No Restrictions, As Tolerated Follow Up/Referral: pulido Medications: amiodarone pradaxa 39 Discharge Statement: "Patient was advised to return to the ER or call 911 if any headaches, dizziness, shortness of breath, chest pain, abdominal pain, bleeding, fevers, or worsening of medical condition. Patient was counseled about treatment plan, medications, possible side effects, patientverbalized understanding. All questions were answered to the best of my ability. This discharge took greater then 30 minutes in planning, reviewing documentation, counseling the patient, and discussing with other team members." ASSESSMENT ASSESSMENT Assessment afib RVR Date of Service: Nov 06, 2024 Billing Provider: MARK DURBIN MD Common Visit Codes: 35885-DRD/OBS DISCH DAY >30min MARK DURBIN MD Nov 06, 2024 13:53
[2024-11-06 14:16] VITALS: BP 133/74; PULSE 67; RESP 16; TEMP 98.4; O2SAT 100
== END 2024-11-06 14:55 | disposition home or self-care (01) | DRG 281 ==
LOC: EDBD 11:12 → ER 11:16 → OVERFLOW 19:17 → TELE-CENTR 19:21
PROVIDERS: ADMIT Student in an Organized Health Care Education/Training Program; ATTEND Student in an Organized Health Care Education/Training Program
DX: I48.0 Paroxysmal atrial fibrillation (principal); D68.9 Coagulation defect, unspecified; I21.A1 Myocardial infarction type 2; F31.9 Bipolar disorder, unspecified; I10 Essential (primary) hypertension; E11.9 Type 2 diabetes mellitus without complications; E78.5 Hyperlipidemia, unspecified; E66.01 Morbid (severe) obesity due to excess calories; E87.6 Hypokalemia; Z88.8 Allergy status to other drugs, medicaments and biological substances; Z79.899 Other long term (current) drug therapy; Z68.36 Body mass index [BMI] 36.0-36.9, adult
CPT/HCPCS: 36415; 71045; 80048; 80061; 82962; 83036; 83605; 83735; 83880; 84443; 84484; 85025; 93005; 93306; 99291; G0378; J2405